=== PATIENT | male | born 1945 | race Caucasian/White ===

== ENCOUNTER → 2016-06-30 | Day surgery (SDC) | payer OTHER ==
[2016-06-30] VITALS (12 sets, daily range): BP systolic 114–135; BP diastolic 64–80
[~2016-06-30] VITALS: Ht 182.9 cm; Wt 88.9 kg
[~2016-06-30] MED LIST: Alfentanil 2ml Inj ONE; Atropine Inj 1mg/10ml Syr IV PRN; Bupivacaine 0.25% Inj 30ml INJ ONE; Bupivacaine w/Epi 0.25% 30ml Vial INJ ONE; D5 1/2NS 1,000 ML IV SCH; Dexamethasone 4mg/ml vial ONE; DiphenhydrAMINE 50mg/ml Inj IVP PRN; Duramorph PF 10mg/10ml amp EPIDUR ONE; EPINEPHrine 1mg/1ml Amp ONE; Hydromorphone 0.5mg/0.5ml inj IVP PRN; IBUPROFEN600 MG ORAL; Kenalog-40 1ml Vial ONE; Ketorolac 30mg Inj IM ONE; Ketorolac 30mg Inj IV PRN; Ketorolac 60mg Inj IV PRN; LORazepam Inj 2mg/ml 1ml IV PRN; LR 1000ml 1,000 ML IVLG SCH; LR 1000ml ONE; Labetalol 5mg/ml 20ml vial IV PRN; Lidocaine 1% MPF 10mg/ml 5ml ONE; Meperidine 25mg/ml Inj IV PRN; Metoclopramide 10mg/2ml Inj IVP PRN; Midazolam 2mg/2ml Inj IVP PRN; Midazolam 2mg/2ml Inj ONE; Morphine Sulfate 2mg/ml Inj IVP PRN; Morphine Sulfate PF 10 ML ONE; NKM; NORCO 5-325 TA1 EACH ORAL; NS Irrig 4000ml IRRIG ONE; Norco 5mg/325mg tab ORAL PRN; Norco 7.5mg/325mg tab ORAL PRN; ONDANSETRON ODT4 MG ORAL; Oxycodone/Acetaminophen 5-325 ORAL PRN; Propofol 10mg/ml 20ml IV ONE; Ropivacaine 5mg/ml Vial 20ml INJ ONE; ceFAZolin 1gm/50ml Premix 50 ML IV ONE; celeBREX 200mg Cap **SURGERY PATIENTS ONLY ORAL ONE; fentaNYL 100 mcg/2 mL IV PRN; oxyCONTIN 20mg tab ORAL ONE
--- NOTE | 2016-06-30 06:58 | Anethesia Preoperative Eval ---
Anesthesia Pre-op PMH/ROS General Date of Evaluation: Jun 30, 2016 Time of Evaluation: 07:41 Anesthesiologist: Ny ASA Score: ASA 2 Mallampati Score Class I : Soft palate, uvula, fauces, pillars visible Class II: Soft palate, uvula, fauces visible Class III: Soft palate, base of uvula visible Class IV: Only hard plate visible Mallampati Classification: Class II Surgeon: Tremaine Diagnosis: L Shoulder Pain Surgical Procedure: L Shoulder Arthroscopy Anesthesia History: none Family History: no anesthesia problems Allergies: Coded Allergies: No Known Allergies (Unverified , 05/25/13) Medications: see eMAR Past Medical History Gastrointestinal/Genitourinary: Reports: other - BPH PSxH Narrative: Bilateral CTR Anesthesia Pre-op Phys. Exam Physician Exam Last Vital Signs Date Time Temp Pulse Resp B/P Pulse Ox O2 Delivery O2 Flow Rate FiO2 06/30/16 06:35 97.7 73 20 125/76 96 Room Air Constitutional: NAD Neurologic: CN 2-12 intact Cardiovascular: RRR Respiratory: CTA Gastrointestinal: S/NT/ND Airway Exam Mallampati Score: Class II MO: full ROM: limited Teeth: intact Anesthesia Pre-op A/P Risk Assessment & Plan Assessment: ASA 2 Plan: GA, Supraclavicular Block Status Change Before Surgery: No Pre-Antibiotics Dru Grams Ancef IV Given Within 1 Hr of Incision: Yes Time Given: 08:01 Josh Alejandra MD Jun 30, 2016 06:58
--- NOTE | 2016-06-30 07:00 | 48 Hour Post Anesthesia Eval ---
Post Anesthesia Evaluation Procedure: L Shoulder Arthroscopy Date of Evaluation: Jun 30, 2016 Time of Evaluation: 11:13 Blood Pressure Systolic: 131 0: 78 Pulse Rate: 82 Respiratory Rate: 16 Temperature (Fahrenheit): 98.2 O2 Sat by Pulse Oximetry: 100 Airway: patent Nausea: No Vomiting: No Pain Intensity: 1 Hydration Status: adequate Cardiopulmonary Status: Stable Mental Status/LOC: patient returned to baseline Follow-up Care/Observations: 0 Post-Anesthesia Complications: 0 Follow-up care needed: ready to discharge Josh Alejandra MD Jun 30, 2016 07:00
--- NOTE | 2016-06-30 07:00 | Immediate Post-Op Evaluation ---
Immediate Post-Op Evalulation Immediate Post-Op Evalulation Procedure: L Shoulder Arthroscopy Date of Evaluation: Jun 30, 2016 Time of Evaluation: 09:04 Blood Products: 0 Estimated Blood Loss: 7 Urinary Output: 0 Blood Pressure Systolic: 133 Blood Pressure Diastolic: 76 Pulse Rate: 68 Respiratory Rate: 16 O2 Sat by Pulse Oximetry: 100 Temperature (Fahrenheit): 97.2 Pain Score (1-10): 1 Nausea: No Vomiting: No Complications 0 Patient Status: awake, reacts, patent, extubated, none Hydration Status: adequate Dru Grams Ancef IV Given Within 1 Hr of Incision: Yes Time Given: 08:01 Josh Alejandra MD Jun 30, 2016 07:00
--- NOTE | 2016-06-30 07:13 | Pre-Procedure Note/Attestation ---
Pre-Procedure Note/Attestation Complete Prior to Procedure Planned Procedure: left Procedure Narrative: shoulder arthroscopy, sad, possible rc repair Indications for Procedure Pre-Operative Diagnosis: left shoulder rct, impingement Attestation I attest that I discussed the nature of the procedure; its benefits; risks and complications; and alternatives (and the risks and benefits of such alternatives ), prior to the procedure, with the patient (or the patient's legal customer service representative teller). I attest that, if there was a reasonable possibility of needing a blood transfusion, the patient (or the patient's legal customer service representative teller) was given the [facility] standardized written summary, pursuant to the Lino [place] Blood Safety Act ([place] Health and Safety Code # 1645, as amended). I attest that I re-evaluated the patient just prior to the surgery and that there has been no change in the patient's H&P, except as documented below: ELLEN CRUZ Jun 30, 2016 07:13
--- NOTE | 2016-06-30 07:13 | Operative Note - PDOC ---
Operative Note Operative Note Pre-op Diagnosis: left shoulder rct, impingement Procedure: left shoulder arthrscopy, rct, sad Post-op Diagnosis: same as pre-op Operative Findings: consistent w/pre-op dx studies Anesthesia: general Specimen: none Complications: none Condition: stable Estimated Blood Loss: none Implant(s) used?: No ELLEN CRUZ Jun 30, 2016 07:13
--- NOTE | 2016-06-30 19:47 | Operative Note - Dictated ---
DATE OF OPERATION: 06/30/2016 PREOPERATIVE DIAGNOSES: 1. Left shoulder partial rotator cuff tear. 2. Left shoulder adhesive capsulitis. 3. Left shoulder impingement syndrome. POSTOPERATIVE DIAGNOSES: 1. Anterior and superior labral tear (superior labrum anterior posterior grade 1 tear). 2. Bursal-sided partial articular rotator cuff tear. 3. Intra-articular multiple adhesions. 4. Impingement syndrome. 5. Bursitis. PROCEDURES: 1. Left shoulder arthroscopic extensive intra-articular debridement. 2. Left shoulder SLAP debridement/repair. 3. Left shoulder arthroscopic rotator cuff debridement/repair. 4. Subacromial decompression with release of the cortical clavicular ligament bursectomy. INDICATION FOR PROCEDURE: The patient is a pleasant gentleman, who has progressive left shoulder pain. He failed conservative treatment and elected to undergo left shoulder arthroscopy with possible repair versus debridement of rotator cuff tear and concurrent subacromial decompression bursectomy. Risks, limitations, expectations, and complications of the procedure were discussed in detail. All questions addressed including alternatives. DESCRIPTION OF PROCEDURE: An informed consent was obtained. The patient was taken to the operative room and placed under left interscalene general anesthesia. The patient was then carefully placed in the beach-chair position. Left shoulder was prepped and draped in a sterile manner. Time-out was performed. Ancef was administered. Posterolateral skin incision was then made. Trocar was introduced into the glenohumeral joint. Of note, there were significant adhesions in the articular margin. This tissue whether represent tears or residual scar tissue was difficult to assess given the extensive nature of it. The rotator interval was identified. Spinal needle was then placed through this area along with the trocar. At this point, a shaver was placed in the shoulder joint and debridement of some of this tissue was performed to better visualize the anatomy of the shoulder. Some of the fraying was coming from the anterior labrum as well as superior labrum. This was debrided down to healthy margin of tissue. Once that was done, the anterior labrum and superior labrum was probed and noted to be intact. It is felt that this represented a tear of the anterior and superior labrum, but this certainly need repair. The biceps was then attempted to mobilize. It was adhered to the rotator interval. Therefore using a blunt shaver, the interval between the biceps tendon and the rotator interval was developed. Once that was done, the biceps tendon was able to be mobilized into the joint and had no evidence of erythema. The undersurface of the rotator cuff along the supraspinous and infraspinatus had a partial rotator cuff tear. Partial debridement of this area was performed down to healthy tissue. Once that was done, the axillary pouch was free of any loose bodies. The posterior labrum was assessed. There was some fraying along the posterior labrum as well. This was again debrided with the shaver down to stable rim of tissue. At this point, the shoulder looked a little bit more normal now that everything was cleaned up. The camera was then placed into the subacromial space. There was some hypertrophic bursal tissue. The cortical ligament was erythematous. This was released and identified the undersurface of the anterior lateral aspect of the acromion. Once this was done, acromioplasty was started from lateral to medial and completed from posterior to anterior. The posterior bursal tissue was then further removed. The bursal side of the rotator cuff was evaluated and was noted to be intact. At this point, camera was removed. Portal sites were closed with 3-0 Monocryl suture. Steri-Strips and a sterile dressing were applied. The patient was awoken and taken to recovery room with stable signs. ESTIMATED BLOOD LOSS: None. COMPLICATIONS: None. SPECIMENS: None. IMPLANTS: None. Marino Penaloza M.D. DR: MITCHEL JOB#: [id number] CC: GHAZALA
== END | disposition home or self-care (01) ==
LOC: SUR 06:03
DX: M75.102 Unspecified rotator cuff tear or rupture of left shoulder, not specified as traumatic (principal); S43.432A Superior glenoid labrum lesion of left shoulder, initial encounter; X58.XXXA Exposure to other specified factors, initial encounter; Y92.89 Other specified places as the place of occurrence of the external cause; Y99.9 Unspecified external cause status; M75.02 Adhesive capsulitis of left shoulder; M75.42 Impingement syndrome of left shoulder; M75.52 Bursitis of left shoulder; N40.0 Benign prostatic hyperplasia without lower urinary tract symptoms
CPT/HCPCS: 29807; 29826; 29827; J0171; J1100; J1885; J2250; J2274; J2405; J2704; J2795; J3301; J3490; J7120; 94003; 94150

== ENCOUNTER 2018-05-21 10:27 | Outpatient (CLI) | payer MEDICARE, OTHER ==
[~2018-05-21 10:27] MED LIST changes: -Alfentanil 2ml Inj ONE; -Atropine Inj 1mg/10ml Syr IV PRN; -Bupivacaine 0.25% Inj 30ml INJ ONE; -Bupivacaine w/Epi 0.25% 30ml Vial INJ ONE; -D5 1/2NS 1,000 ML IV SCH; -Dexamethasone 4mg/ml vial ONE; -DiphenhydrAMINE 50mg/ml Inj IVP PRN; -Duramorph PF 10mg/10ml amp EPIDUR ONE; -EPINEPHrine 1mg/1ml Amp ONE; -Hydromorphone 0.5mg/0.5ml inj IVP PRN; -Kenalog-40 1ml Vial ONE; -Ketorolac 30mg Inj IM ONE; -Ketorolac 30mg Inj IV PRN; -Ketorolac 60mg Inj IV PRN; -LORazepam Inj 2mg/ml 1ml IV PRN; -LR 1000ml 1,000 ML IVLG SCH; -LR 1000ml ONE; -Labetalol 5mg/ml 20ml vial IV PRN; -Lidocaine 1% MPF 10mg/ml 5ml ONE; -Meperidine 25mg/ml Inj IV PRN; -Metoclopramide 10mg/2ml Inj IVP PRN; -Midazolam 2mg/2ml Inj IVP PRN; -Midazolam 2mg/2ml Inj ONE; -Morphine Sulfate 2mg/ml Inj IVP PRN; -Morphine Sulfate PF 10 ML ONE; -NS Irrig 4000ml IRRIG ONE; -Norco 5mg/325mg tab ORAL PRN; -Norco 7.5mg/325mg tab ORAL PRN; -Oxycodone/Acetaminophen 5-325 ORAL PRN; -Propofol 10mg/ml 20ml IV ONE; -Ropivacaine 5mg/ml Vial 20ml INJ ONE; -ceFAZolin 1gm/50ml Premix 50 ML IV ONE; -celeBREX 200mg Cap **SURGERY PATIENTS ONLY ORAL ONE; -fentaNYL 100 mcg/2 mL IV PRN; -oxyCONTIN 20mg tab ORAL ONE
[2018-05-21 10:31] VITALS: BP 118/72
[2018-05-23] MEDS ORDERED: CIALIS5 MG PO (15:24)
--- NOTE | 2018-05-24 09:41 | GI Initial Consult Note ---
History of Present Illness General Date patient seen: May 24, 2018 Referring physician: TALON Reason for Consultation: CONSTIPATION Present Illness HPI This is a 72-year-old male patient that presents today with complaint of constipation. Other than that having the presence of just dentures, the patient denies any past medical history. He denies any past surgical history. At this time has no complaints of any nausea or vomiting. The patient has no history of colonoscopy or endoscopy.. Denies any unintentional weight loss or changes in dietary habits. No signs of abuse or neglect. Patient is not fall risk. Home Meds Reported Medications Tadalafil (CIALIS) 5 Mg Tablet, PO DAILY, TAB 05/23/18 Med list reviewed/reconciled: Yes Allergies: Coded Allergies: No Known Allergies (Unverified , 05/25/13) Patient History History Provided By: Patient, Medical Record PMH Narrative Patient History Past Medical History: see triage record Immunizations: UTD Reviewed Nursing Documentation: PMH: Agreed, PSxH: Agreed Nursing Documentation-PMH Past Medical History: No Stated History Hx Cardiac Problems: No Hx Hypertension: No Hx Pacemaker: No Hx Asthma: No Hx COPD: No Hx Diabetes: No Hx Cancer: No Hx Gastrointestinal Problems: No Hx Dialysis: No History Of Psychiatric Problem: No Hx Neurological Problems: No Hx Cerebrovascular Accident: No Hx Seizures: No Past Surgical History: none Pertinent Family History: none Social History: Reports: smoking Review of Systems All Other Systems: negative except mentioned in HPI Physical Exam Vital Signs Date Time Temp Pulse Resp B/P (MAP) Pulse Ox O2 Delivery O2 Flow Rate FiO2 05/21/18 10:31 98.1 92 16 118/72 95 Sp02 EP Interpretation: reviewed, normal General Appearance: well appearing, no apparent distress, alert Head: normocephalic EENT: PERRL/EOMI, normal ENT inspection Neck: supple Respiratory: normal breath sounds, no respiratory distress Cardiovascular: normal rate Gastrointestinal: normal inspection, non tender, soft, normal bowel sounds, non -distended Rectal: deferred Genitourinary: deferred Musculoskeletal: normal inspection, back normal Neurologic: normal inspection, alert, oriented x3, responsive Psychiatric: normal inspection, judgement/insight normal, memory normal Skin: normal inspection, normal color, no rash, warm/dry, palpation normal, well hydrated Lymphatic: normal inspection, no adenopathy GI: Plan Problems: (1) Colonoscopy planned (2) Constipation Plan EGD/colonoscopy to be scheduled June 07, 2018 - CLD & (Nulytely/Suprep/Movi-Prep) prep instructions given and acknowledged by patient. - NPO @ PR day prior procedure explained. Will follow with additional recs post procedure. Seen with Dr. Mccurdy. Thank you for this patient referral. The patient was seen and examined at bedside and all new and available data was reviewed in the patients chart. I agree with the above findings, impression and plan. (Patient seen earlier today. Signature stamp does not reflect patient encounter time.). - MD Samantha Jesus,[facility]Julio C ENGINE MAINTENANCE MECHANIC May 24, 2018 09:40
== END 2018-05-21 10:57 | disposition home or self-care (01) ==
LOC: PAN 10:27
DX: K59.00 Constipation, unspecified (principal); F17.200 Nicotine dependence, unspecified, uncomplicated
CPT/HCPCS: 99201

== ENCOUNTER 2018-06-07 09:07 | Day surgery (SDC) | payer MEDICARE, OTHER ==
[2018-06-07] VITALS (7 sets, daily range): BP systolic 117–144; BP diastolic 70–89
[~2018-06-07] VITALS: Ht 182.9 cm; Wt 87.1 kg
[~2018-06-07 09:07] MED LIST changes: +CIALIS5 MG PO
[2018-06-07] MEDS ORDERED: FOLIC ACID1 MG ORAL (09:37)
[2018-06-07] MEDS ORDERED: ASPIRIN81 M3 PO (09:37)
--- NOTE | 2018-06-07 10:08 | Pre-Procedure Note/Attestation ---
Pre-Procedure Note/Attestation Complete Prior to Procedure Planned Procedure: not applicable Procedure Narrative: esophagogastroduodenoscopy and colonoscopy Indications for Procedure Pre-Operative Diagnosis: screening colon, GERD Attestation I attest that I discussed the nature of the procedure; its benefits; risks and complications; and alternatives (and the risks and benefits of such alternatives ), prior to the procedure, with the patient (or the patient's legal physician relations representative). I attest that, if there was a reasonable possibility of needing a blood transfusion, the patient (or the patient's legal physician relations representative) was given the [facility] standardized written summary, pursuant to the Lino Clymer Blood Safety Act ([place] Health and Safety Code # 1645, as amended). I attest that I re-evaluated the patient just prior to the surgery and that there has been no change in the patient's H&P, except as documented below: Bong Mccurdy MD Jun 07, 2018 10:08
--- NOTE | 2018-06-07 10:09 | Short Stay Surgery H&P ---
History of Present Illness History of Present Illness Chief Complaint see recent office note HPI Jose Alfredo Valadez is a 72 year old male who was admitted on for Colon Screening,Abdominal Pain Patient History Allergies: Coded Allergies: No Known Allergies (Unverified , 06/07/18) Medication History Scheduled Aspirin (Aspirin), 81 MG PO DAILY, (Reported) Folic Acid* (Folic Acid*), 1 MG ORAL DAILY, (Reported) Tadalafil (Cialis), Unknown Dose PO DAILY, (Reported) Physical Exam Vital Signs Last Vital Signs Date Time Temp Pulse Resp B/P (MAP) Pulse Ox O2 Delivery O2 Flow Rate FiO2 06/07/18 09:41 Room Air 06/07/18 09:40 97.2 64 18 144/89 98 Plan Attestation Are the patient's medical conditions optimized for surgery? Bong Mccurdy MD Jun 07, 2018 10:09
--- NOTE | 2018-06-07 10:18 | Anethesia Preoperative Eval ---
Anesthesia Pre-op PMH/ROS General Date of Evaluation: Jun 07, 2018 Time of Evaluation: 10:21 Anesthesiologist: Bridgett Felix CRNA ASA Score: ASA 2 Mallampati Score Class I : Soft palate, uvula, fauces, pillars visible Class II: Soft palate, uvula, fauces visible Class III: Soft palate, base of uvula visible Class IV: Only hard plate visible Mallampati Classification: Class II Surgeon: Calli Diagnosis: colon screening Surgical Procedure: diagnostic EGD, colon screening Anesthesia History: none Social History: smoking Family History: no anesthesia problems Allergies: Coded Allergies: No Known Allergies (Unverified , 06/07/18) Medications: see eMAR Patient NPO?: Yes NPO Date: Jun 07, 2018 Past Medical History Cardiovascular: Denies: HTN, CAD, [place], valve dz, arrhythmia, other Pulmonary: Denies: asthma, COPD, JOAN, other Gastrointestinal/Genitourinary: Reports: GERD, other - Prostate hypertrophy; Denies: CRI, ESRD Neurologic/Psychiatric: Denies: dementia, CVA, depression/anxiety, TIA, other Endocrine: Denies: DM, hypothyroidism, steroids, other HEENT: Denies: cataract (L), cataract (R), glaucoma, [place] (L), [place] (R), other Hematology/Immune: Denies: anemia, DVT, bleeding disorder, other Musculoskeletal/Integumentary: Denies: OA, RA, DJD, DDD, edema, other PMH Narrative: as above PSxH Narrative: Left shoulder surgery, Carpel tunnel Anesthesia Pre-op Phys. Exam Physician Exam Last Vital Signs Date Time Temp Pulse Resp B/P (MAP) Pulse Ox O2 Delivery O2 Flow Rate FiO2 06/07/18 09:41 Room Air 06/07/18 09:40 97.2 64 18 144/89 98 Constitutional: NAD Neurologic: CN 2-12 intact Cardiovascular: RRR Respiratory: CTA Gastrointestinal: S/NT/ND Airway Exam Mallampati Score: Class II MO: full Neck: FROM TMD: 3 fb ROM: full Teeth: intact Dentures: no upper, no lower Anesthesia Pre-op A/P Studies Pre-op Studies: EKG - SR Risk Assessment & Plan Status Change Before Surgery: No Pre-Antibiotics Given Within 1 Hr of Incision: Bridgett Kim CRNA Jun 07, 2018 10:18
[2018-06-07] MEDS ORDERED: Lidocaine 1% MPF 10mg/ml 5ml ONE (10:30)
[2018-06-07] MEDS ORDERED: Propofol 200mg/20ml IV ONE (10:30)
--- NOTE | 2018-06-07 11:03 | Endoscopy Procedure Note ---
Endoscopy Procedure Note General Indication for Procedure: screening colon GERD Procedures Performed: EGD, colonoscopy Operative Findings/Diagnosis: 7 polyps Specimen: yes Pt Tolerated Procedure Well: Yes Estimated Blood Loss: none Anesthesia Anesthesiologist: millicent Anesthesia: MAC Inserted Devices Implant(s) used?: No Quality Quality of Bowel Preparation: Good Did scope reach the cecum?: Yes Was there any complications?: No GI Core Measures 50 yrs or older w/o bx or poly: No 10yrs. F/U not recommended: Yes If not recommended, why?: Above average risk 10 yrs. F/U needed: Yes 18 years or older w/prev. colo: No Bong Mccurdy MD Jun 07, 2018 11:02
--- NOTE | 2018-06-07 11:12 | Immediate Post-Op Evaluation ---
Immediate Post-Op Evalulation Immediate Post-Op Evalulation Procedure: EGD, colonoscopy polypectomy Date of Evaluation: Jun 07, 2018 Time of Evaluation: 11:05 IV Fluids: 0.9 NS 500 ml Blood Pressure Systolic: 129 Blood Pressure Diastolic: 78 Pulse Rate: 61 Respiratory Rate: 12 O2 Sat by Pulse Oximetry: 100 Temperature (Fahrenheit): 97.2 Pain Score (1-10): 0 Nausea: No Vomiting: No Complications none Patient Status: awake, reacts, patent Hydration Status: adequate Given Within 1 Hr of Incision: Bridgett Kim CRNA Jun 07, 2018 11:12
--- NOTE | 2018-06-07 12:46 | 48 Hour Post Anesthesia Eval ---
Post Anesthesia Evaluation Procedure: EGD, colonoscopy polypectomy Date of Evaluation: Jun 07, 2018 Time of Evaluation: 11:50 Blood Pressure Systolic: 140 0: 86 Pulse Rate: 59 Respiratory Rate: 18 Temperature (Fahrenheit): 97.7 O2 Sat by Pulse Oximetry: 96 Airway: patent Nausea: No Vomiting: No Pain Intensity: 0 Hydration Status: adequate Cardiopulmonary Status: stable Mental Status/LOC: patient returned to baseline Follow-up Care/Observations: per GI Post-Anesthesia Complications: none Follow-up care needed: ready to discharge Bridgett Felix CRNA Jun 07, 2018 12:46
--- NOTE | 2018-06-07 15:15 | Procedure Note ---
DATE OF PROCEDURE: 06/07/2018 PROCEDURE: Upper endoscopy with biopsy and colonoscopy with biopsy. ANESTHESIOLOGIST: Rip Urias, nurse warehouse coordinator. INSTRUMENT: Olympus adult flexible upper endoscope and colonoscope. INDICATION: 1. Screening colonoscopy. 2. Chronic GERD. REASON FOR PROCEDURE: The procedure, risks, benefits, and possible consequences, including hemorrhage, aspiration, perforation and infection, and alternative treatments, were explained to the patient/legal guardian by Dr. Bong Mccurdy and the patient/legal guardian understood and accepted these risks. DESCRIPTION OF PROCEDURE: After informed consent was obtained and the patient was adequately sedated, Olympus upper endoscope was advanced from the mouth into second portion of the duodenum and retroflexion performed in the stomach. The patient had evidence of diffuse gastritis. Random biopsy from antrum and body was obtained to rule out H. pylori infection. Otherwise rest of upper endoscopy examination grossly looked within normal limits. GE junction was found to be about cm from the incisors. At this time, the upper endoscope was retrieved and the patient was turned out for colonoscopy. First, rectal exam was performed, which was positive for internal hemorrhoids. Then, the scope was advanced from rectum into the cecum and then subsequently into the terminal ileum. Quality of prep overall was good. The patient had one small polyp in the cecum, removed with cold biopsy forceps technique. There were six other small polyps in the transverse colon, all removed with cold biopsy forceps technique. The patient also had some scattered diverticulosis without evidence of diverticulitis. Retroflexion of the rectum was performed which showed evidence of small nonbleeding internal hemorrhoids. The patient tolerated procedure very well without complications. SUMMARY OF FINDINGS: 1. Gastritis status post biopsy to rule out H. pylori infection. 2. Total of seven colon polyps removed, see above for details. 3. Internal hemorrhoids. 4. Diverticulosis. RECOMMENDATIONS: 1. Follow up biopsy results and treat accordingly. 2. We recommend repeat colonoscopy in two years given number of polyps. Bong Mccurdy M.D. DR: Nestor JOB#: [id number] CC:
== END 2018-06-07 12:45 | disposition home or self-care (01) ==
LOC: GAS 09:07
DX: Z12.11 Encounter for screening for malignant neoplasm of colon (principal); D12.3 Benign neoplasm of transverse colon; K63.5 Polyp of colon; K57.30 Diverticulosis of large intestine without perforation or abscess without bleeding; K64.8 Other hemorrhoids; K21.9 Gastro-esophageal reflux disease without esophagitis; K29.50 Unspecified chronic gastritis without bleeding; N40.0 Benign prostatic hyperplasia without lower urinary tract symptoms; F17.200 Nicotine dependence, unspecified, uncomplicated; Z79.82 Long term (current) use of aspirin
CPT/HCPCS: 43239; 45380; 93005; J2704; 94003; 94150

== ENCOUNTER 2018-06-20 10:02 | Outpatient (CLI) | payer MEDICARE, OTHER ==
[~2018-06-20 10:02] MED LIST changes: +ASPIRIN81 M3 PO; +FOLIC ACID1 MG ORAL
--- NOTE | 2018-06-20 10:37 | GI Progress Note ---
Assessment/Plan Problems: (1) H. pylori infection ICD Codes: A04.8 - Other specified bacterial intestinal infections SNOMED: 076985917 (2) Constipation ICD Codes: K59.00 - Constipation, unspecified SNOMED: 92486548 Status: stable Status Narrative Seen with Dr. Moreno Assessment/Plan SUMMARY OF FINDINGS reviewed with patient: 1. Gastritis status post biopsy to rule out H. pylori infection. 2. Total of seven colon polyps removed, see above for details. 3. Internal hemorrhoids. 4. Diverticulosis. RECOMMENDATIONS: Follow up biopsy results and treat accordingly. >> Positive for H. pylori infection >> treatment today Return to clinic in 3 months for breath test Rx MiraLAX We recommend repeat colonoscopy in two years given number of polyps. The patient was seen and examined at bedside and all new and available data was reviewed in the patients chart. I agree with the above findings, impression and plan. (Patient seen earlier today. Signature stamp does not reflect patient encounter time.). - Bong Mccurdy MD Subjective Subjective Constipation Objective temperature 98.0 Blood pressure 121/67 Pulse 84 93% room air General Appearance: WD/WN, no apparent distress, alert Cardiovascular: normal rate Respiratory/Chest: normal breath sounds, no respiratory distress Abdominal Exam: normal bowel sounds, non tender, soft Extremities: normal range of motion, non-tender Yamileth Singh NP Jun 20, 2018 10:37
[2018-06-20 15:38] VITALS: BP 121/67
[2018-09-12] MEDS ORDERED: MIRALAX17 G2 ORAL (14:49)
== END 2018-06-20 10:33 | disposition home or self-care (01) ==
LOC: PAN 10:02
DX: A04.8 Other specified bacterial intestinal infections (principal); K59.00 Constipation, unspecified; K29.70 Gastritis, unspecified, without bleeding; K64.8 Other hemorrhoids; K57.90 Diverticulosis of intestine, part unspecified, without perforation or abscess without bleeding
CPT/HCPCS: G0463

== ENCOUNTER → 2018-09-12 | Outpatient (CLI) | payer MEDICARE, OTHER ==
[~2018-09-12] MED LIST changes: +MIRALAX17 G2 ORAL
--- NOTE | 2018-09-12 13:37 | General Progress Note ---
Assessment/Plan Problem List: (1) Multiple polyps of sigmoid colon ICD Codes: D12.5 - Benign neoplasm of sigmoid colon SNOMED: 275305778 (2) Diverticulosis ICD Codes: K57.90 - Diverticulosis of intestine, part unspecified, without perforation or abscess without bleeding SNOMED: 882750270 (3) H. pylori infection ICD Codes: A04.8 - Other specified bacterial intestinal infections SNOMED: 918250646 (4) Constipation ICD Codes: K59.00 - Constipation, unspecified SNOMED: 60509379 Assessment/Plan mirakax repeat colon on breath test for today Subjective ROS Limited/Unobtainable: Yes Allergies: Coded Allergies: No Known Allergies (Unverified , 06/07/18) Objective General Appearance: alert EENT: normal ENT inspection Neck: supple Cardiovascular: normal rate Respiratory/Chest: lungs clear Abdomen: normal bowel sounds, non tender, soft Extremities: non-tender Bong Mccurdy MD Sep 12, 2018 13:37
[2018-09-12 14:58] VITALS: BP 121/73
== END | disposition home or self-care (01) ==
LOC: PAN 12:58
DX: D12.5 Benign neoplasm of sigmoid colon (principal); K57.90 Diverticulosis of intestine, part unspecified, without perforation or abscess without bleeding; A04.8 Other specified bacterial intestinal infections; K59.00 Constipation, unspecified
CPT/HCPCS: 83013

== ENCOUNTER 2020-07-07 08:25 | Day surgery (SDC) | payer MEDICARE, OTHER ==
[~2020-07-07] VITALS: Ht 182.9 cm; Wt 86.2 kg
[2020-07-07] VITALS (10 sets, daily range): BP systolic 112–148; BP diastolic 57–82
[~2020-07-07 08:25] MED LIST changes: +VITAMIN D325 MC1 PO
--- NOTE | 2020-07-07 10:30 | Pre-Procedure Note/Attestation ---
Pre-Procedure Note/Attestation Complete Prior to Procedure Planned Procedure: not applicable Procedure Narrative: screening colon Indications for Procedure Pre-Operative Diagnosis: screening colon Attestation I attest that I discussed the nature of the procedure; its benefits; risks and complications; and alternatives (and the risks and benefits of such alternatives), prior to the procedure, with the patient (or the patient's legal loan servicing representative). I attest that, if there was a reasonable possibility of needing a blood transfusion, the patient (or the patient's legal loan servicing representative) was given the [facility] standardized written summary, pursuant to the Lino Monica Blood Safety Act ([place] Health and Safety Code # 1645, as amended). I attest that I re-evaluated the patient just prior to the surgery and that there has been no change in the patient's H&P, except as documented below: Bong Mccurdy MD Jul 07, 2020 10:30
--- NOTE | 2020-07-07 10:30 | Short Stay Surgery H&P ---
History of Present Illness History of Present Illness Chief Complaint see office note HPI Jose Alfredo Begum is a 75 year old male who was admitted on for Polyps Patient History Allergies: Coded Allergies: No Known Allergies (Unverified , 06/07/18) Medication History Scheduled Cholecalciferol (Vitamin D3) (Vitamin D3*), 25 MCG PO DAILY, (Reported) Discontinued Medications Aspirin (Aspirin), 81 MG PO DAILY, (Reported) Discontinued Reason: Pt stopped taking med Folic Acid* (Folic Acid*), 1 MG ORAL DAILY, (Reported) Discontinued Reason: Pt stopped taking med Polyethylene Glycol 3350* (Miralax*), 17 GM ORAL DAILY, (Reported) Discontinued Reason: Pt stopped taking med Tadalafil (Cialis), Unknown Dose PO DAILY, (Reported) Discontinued Reason: Pt stopped taking med Physical Exam Vital Signs Last Vital Signs Date Time Temp Pulse Resp B/P (MAP) Pulse Ox O2 Delivery O2 Flow Rate FiO2 07/07/20 08:53 97.6 75 18 148/61 75 Room Air Plan Attestation Are the patient's medical conditions optimized for surgery? Bong Mccurdy MD Jul 07, 2020 10:30
[2020-07-07] MEDS ORDERED: Lidocaine 1% MPF 10mg/ml 5ml ONE (11:00)
[2020-07-07] MEDS ORDERED: LR 1000ml ONE (11:00)
--- NOTE | 2020-07-07 11:18 | Endoscopy Procedure Note ---
Endoscopy Procedure Note General Indication for Procedure: screening Procedures Performed: colonoscopy Operative Findings/Diagnosis: 6 polyps Specimen: yes Pt Tolerated Procedure Well: Yes Estimated Blood Loss: none Anesthesia Anesthesiologist: renae Anesthesia: MAC Inserted Devices Implant(s) used?: No Quality Quality of Bowel Preparation: Good Did scope reach the cecum?: Yes Was there any complications?: No GI Core Measures 50 yrs or older w/o bx or poly: No 10yrs. F/U recommended: Yes If not recommended, why?: Above average risk 18 years or older w/prev. colo: No Bong Mccurdy MD Jul 07, 2020 11:18
--- NOTE | 2020-07-07 11:24 | Immediate Post-Op Evaluation ---
Immediate Post-Op Evalulation Immediate Post-Op Evalulation Procedure: colonoscopy Date of Evaluation: Jul 07, 2020 Time of Evaluation: 11:23 IV Fluids: 500 Blood Pressure Systolic: 107 Blood Pressure Diastolic: 76 Pulse Rate: 56 Respiratory Rate: 14 O2 Sat by Pulse Oximetry: 100 Temperature (Fahrenheit): 98.3 Nausea: No Vomiting: No Complications none Patient Status: awake, reacts, patent Hydration Status: adequate Drug: none BrianriKristi yost CRNA Jul 07, 2020 11:24
--- NOTE | 2020-07-07 11:26 | Anethesia Preoperative Eval ---
Anesthesia Pre-op PMH/ROS General Date of Evaluation: Jul 07, 2020 Time of Evaluation: 10:55 Anesthesiologist: svitlana ASA Score: ASA 2 Mallampati Score Class I : Soft palate, uvula, fauces, pillars visible Class II: Soft palate, uvula, fauces visible Class III: Soft palate, base of uvula visible Class IV: Only hard plate visible Mallampati Classification: Class II Surgeon: travon Diagnosis: GERD/hx polyp Surgical Procedure: Colonoscopy Anesthesia History: none Family History: no anesthesia problems Allergies: Coded Allergies: No Known Allergies (Unverified , 06/07/18) Medications: see eMAR Patient NPO?: Yes NPO Date: Jul 07, 2020 NPO Time: 00:01 Past Medical History Cardiovascular: Denies: HTN, CAD, ND, valve dz, arrhythmia, other Gastrointestinal/Genitourinary: Reports: GERD Neurologic/Psychiatric: Denies: dementia, CVA, depression/anxiety, TIA, other Endocrine: Denies: DM, hypothyroidism, steroids, other HEENT: Denies: cataract (L), cataract (R), glaucoma, [place] (L), [place] (R), other Hematology/Immune: Denies: anemia, DVT, bleeding disorder, other Musculoskeletal/Integumentary: Denies: OA, RA, DJD, DDD, edema, other PSxH Narrative: colonoscopy Anesthesia Pre-op Phys. Exam Physician Exam Last Vital Signs Date Time Temp Pulse Resp B/P (MAP) Pulse Ox O2 Delivery O2 Flow Rate FiO2 07/07/20 08:53 97.6 75 18 148/61 75 Room Air Constitutional: NAD Neurologic: CN 2-12 intact Cardiovascular: RRR Respiratory: CTA Gastrointestinal: S/NT/ND Airway Exam Mallampati Classification 2 Mallampati Score: Class II MO: full ROM: full Dentures: no upper, no lower Anesthesia Pre-op A/P Studies Pre-op Studies: EKG - sr Risk Assessment & Plan Assessment: colonoscopy Plan: mac Status Change Before Surgery: No Pre-Antibiotics Drug: none Kristi Mcdaniels CRNA Jul 07, 2020 11:25
--- NOTE | 2020-07-07 11:44 | Procedure Note ---
DATE OF PROCEDURE: 07/07/2020 SURGEON: Bong Mccurdy MD PROCEDURE: Colonoscopy with biopsy. ANESTHESIA: Per MOVIE CRITIC, Kristi Tarrillion. INSTRUMENT: Olympus adult flexible colonoscope. INDICATION: Screening colonoscopy. REASON FOR PROCEDURE: The procedure, risks, benefits, and possible consequences, including hemorrhage, aspiration, perforation and infection, and alternative treatments, were explained to the patient/legal guardian by Dr. Bong Mccurdy and the patient/legal guardian understood and accepted these risks. PROCEDURE IN DETAIL: After informed consent was obtained and the patient was adequately sedated, first rectal exam was performed, which was positive for internal hemorrhoids. Then, the scope was advanced from rectum into the cecum and then subsequently terminal ileum. Quality of prep was good. The patient had a total of 6 small polyps, four in the rectum, one in the rectosigmoid, and one transverse, all removed with cold biopsy forceps technique. The patient had also scattered diverticula both in the right and left colon, mild. No obvious diverticulitis. Retroflexion of rectum showed evidence of internal hemorrhoids. SUMMARY OF FINDINGS: 1. A total of 6 polyps removed, see above for details. 2. Internal hemorrhoids. 3. Scattered diverticula. RECOMMENDATIONS: 1. Follow pathology and treat accordingly. 2. Given 6 polyps, we recommend repeat colonoscopy in three years. Bong Mccurdy M.D. DR: Nestor JOB#: [id number] CC:
--- NOTE | 2020-07-07 12:31 | 48 Hour Post Anesthesia Eval ---
Post Anesthesia Evaluation Procedure: colonoscopy Date of Evaluation: Jul 07, 2020 Time of Evaluation: 12:31 Blood Pressure Systolic: 134 0: 57 Pulse Rate: 51 Respiratory Rate: 14 O2 Sat by Pulse Oximetry: 98 Airway: patent Nausea: No Vomiting: No Hydration Status: adequate Cardiopulmonary Status: stable Mental Status/LOC: patient returned to baseline Post-Anesthesia Complications: none Follow-up care needed: N/A Kristi Mcdaniels CRNA Jul 07, 2020 12:31
== END 2020-07-07 12:40 | disposition home or self-care (01) ==
LOC: GAS 08:25
DX: Z12.11 Encounter for screening for malignant neoplasm of colon (principal); K63.5 Polyp of colon; K64.8 Other hemorrhoids; K57.90 Diverticulosis of intestine, part unspecified, without perforation or abscess without bleeding; Z79.82 Long term (current) use of aspirin; Z79.899 Other long term (current) drug therapy; K21.9 Gastro-esophageal reflux disease without esophagitis; D12.3 Benign neoplasm of transverse colon
CPT/HCPCS: 45380; 94003; J2704; J7120; U0004; 94150

== ENCOUNTER 2020-07-21 12:50 | Outpatient (CLI) | payer MEDICARE, OTHER ==
[2020-07-21 12:57] VITALS: BP 131/78
== END 2020-07-21 14:50 | disposition home or self-care (01) ==
LOC: PAN 12:50
DX: R10.9 Unspecified abdominal pain (principal)
CPT/HCPCS: 99212